=== PATIENT | female | born 1950 | race Caucasian/White ===

== ENCOUNTER → 2018-02-10 | Outpatient (REF) | payer OTHER, MEDICARE ==
[2018-02-10 13:48] LABS: APPEARANCE, URINE CLEAR (CLEAR); BACTERIA, URINE AUTO NEGATIVE (NEGATIVE); BILIRUBIN, URINE AUTO NEGATIVE (NEGATIVE); BLOOD, URINE BLOOD 2+ (NEGATIVE); COLOR, URINE STRAW (YELLOW); GLUCOSE, URINE (UA) AUTO NEGATIVE (NEGATIVE); KETONE, URINE AUTO NEGATIVE (NEGATIVE); LEUKOCYTE ESTERASE, URINE AUTO NEGATIVE (NEGATIVE); MUCUS, URINE SMALL (NEGATIVE); NITRITE, URINE AUTO NEGATIVE (NEGATIVE); PROTEIN, URINE AUTO NEGATIVE (NEGATIVE); RBC, URINE AUTO 2 /HPF (0-3); SPECIFIC GRAVITY URINE AUTO 1.006 (1.002-1.035); SQUAMOUS EPITHELIAL CELL UR AU 0 /HPF (0-6); UROBILINOGEN, URINE AUTO 0.2 mg/dL (0.0-2.0); WBC, URINE AUTO 0 /HPF (0-3)
== END ==
LOC: M SMT 13:17
DX: R32 Unspecified urinary incontinence (principal)

== ENCOUNTER → 2018-02-17 | Outpatient (REF) | payer OTHER, MEDICARE ==
[2018-02-17 14:07] LABS: APPEARANCE, URINE HAZY (CLEAR); BACTERIA, URINE AUTO NEGATIVE (NEGATIVE); BILIRUBIN, URINE AUTO NEGATIVE (NEGATIVE); BLOOD, URINE BLOOD 1+ (NEGATIVE); COLOR, URINE STRAW (YELLOW); GLUCOSE, URINE (UA) AUTO NEGATIVE (NEGATIVE); KETONE, URINE AUTO NEGATIVE (NEGATIVE); LEUKOCYTE ESTERASE, URINE AUTO NEGATIVE (NEGATIVE); MUCUS, URINE SMALL (NEGATIVE); NITRITE, URINE AUTO NEGATIVE (NEGATIVE); PROTEIN, URINE AUTO NEGATIVE (NEGATIVE); RBC, URINE AUTO 1 /HPF (0-3); SPECIFIC GRAVITY URINE AUTO 1.005 (1.002-1.035); SQUAMOUS EPITHELIAL CELL UR AU 2 /HPF (0-6); UROBILINOGEN, URINE AUTO 0.2 mg/dL (0.0-2.0); WBC, URINE AUTO 0 /HPF (0-3)
== END ==
LOC: M SMT 13:40
DX: R32 Unspecified urinary incontinence (principal)

== ENCOUNTER → 2018-04-27 | Outpatient (REF) | payer MEDICARE, MEDICAID ==
[~2018-04-27] MED LIST: ASPI81TA21 PO; FISH1000 PO; MULTCAP PO; MYRB50TA PO; OMEG1CAP16 PO; RANI1TAB6 PO
== END ==
LOC: M SFHCCLAY 19:22
PROVIDERS: ATTEND Family Medicine
DX: Z12.4 Encounter for screening for malignant neoplasm of cervix (principal); R87.5 Abnormal microbiological findings in specimens from female genital organs; R87.615 Unsatisfactory cytologic smear of cervix

== ENCOUNTER 2018-06-07 06:43 | Day surgery (SDC) | payer MEDICARE, MEDICAID ==
[~2018-06-07] VITALS: Ht 165.1 cm; Wt 87.7 kg
[2018-06-07] MEDS ORDERED: NS 1,000 ML IV ONE (07:30)
[2018-06-07] MEDS ORDERED: PROPOFOL 200 MG/20 ML VIAL As Ordered ONE ×2 (08:05→08:17)
--- NOTE | 2018-06-07 08:41 | ROOR ---
Patient Name: Nithya Holliday Procedure Date: 06/07/2018 8:03 AM Date of : 1950 Age: 67 Room: [facility] Gender: Female Note Status: Finalized Procedure: Colonoscopy Indications: Screening for colorectal malignant neoplasm Providers: Toni George MD Referring MD: Neela RASHID DO Requesting Provider: Medicines: Monitored Anesthesia Care Complications: No immediate complications. Procedure: Pre-Anesthesia Assessment: - Prior to the procedure, a History and Physical was performed, and patient medications and allergies were reviewed. The patient is competent. The risks and benefits of the procedure and the sedation options and risks were discussed with the patient. All questions were answered and informed consent was obtained. Patient identification and proposed procedure were verified by the physician, the nurse and the anesthesiologist in the procedure room. Mental Status Examination: alert and oriented. Airway Examination: normal oropharyngeal airway and neck mobility. Respiratory Examination: clear to auscultation. CV Examination: normal. Prophylactic Antibiotics: The patient does not require prophylactic antibiotics. Prior Anticoagulants: The patient has taken no previous anticoagulant or antiplatelet agents. ASA Grade Assessment: II - A patient with mild systemic disease. After reviewing the risks and benefits, the patient was deemed in satisfactory condition to undergo the procedure. The anesthesia plan was to use monitored anesthesia care (MAC). Immediately prior to administration of medications, the patient was re-assessed for adequacy to receive sedatives. The heart rate, respiratory rate, oxygen saturations, blood pressure, adequacy of pulmonary ventilation, and response to care were monitored throughout the procedure. The physical status of the patient was re-assessed after the procedure. The Colonoscope was introduced through the anus and advanced to the terminal ileum, with identification of the appendiceal orifice and IC valve. The colonoscopy was performed without difficulty. The patient tolerated the procedure well. The quality of the bowel preparation was good. The terminal ileum, ileocecal valve, appendiceal orifice, and rectum were photographed. Scope insertion time was 3 minutes. Scope withdrawal time was 9 minutes. The total duration of the procedure was 12 minutes. Findings: The perianal and digital rectal examinations were normal. The terminal ileum appeared normal. Two sessile polyps were found in the transverse colon. The polyps were 4 to 6 mm in size. These polyps were removed with a jumbo cold forceps. Resection and retrieval were complete. Verification of patient identification for the specimen was done by the physician and nurse using the patient's name, date and medical record number. Estimated blood loss was minimal. A few small-mouthed diverticula were found in the sigmoid colon. Non-bleeding external and internal hemorrhoids were found during retroflexion. The hemorrhoids were medium-sized. Impression: - The examined portion of the ileum was normal. - Two 4 to 6 mm polyps in the transverse colon, removed with a jumbo cold forceps. Resected and retrieved. - Diverticulosis in the sigmoid colon. - Non-bleeding external and internal hemorrhoids. Recommendation: - Patient has a contact number available for emergencies. The signs and symptoms of potential delayed complications were discussed with the patient. Return to normal activities tomorrow. Written discharge instructions were provided to the patient. - High fiber diet. - Continue present medications. - Await pathology results. - Repeat colonoscopy in 5 years for surveillance based on pathology results. - Based on the biopsy results you will receive a phone call from GI clinic in 2-3 weeks to review the pathology results AND/OR your results will be faxed to your Primary care physician. - Return to primary care physician. Toni George MD Toni George MD 06/07/2018 8:41:20 AM This report has been signed electronically. Number of Addenda: 0 Note Initiated On: 06/07/2018 8:03 AM Estimated Blood Loss: Estimated blood loss was minimal.
[2018-06-07 08:45] VITALS: BP 172/74
[2018-07-08] MEDS ORDERED: FLUO1CRE2 EX (11:25)
== END 2018-06-07 08:55 | disposition home or self-care (01) ==
LOC: M OPP 06:43
PROVIDERS: ATTEND Internal Medicine Gastroenterology
DX: K64.8 Other hemorrhoids (principal); D12.3 Benign neoplasm of transverse colon; K57.30 Diverticulosis of large intestine without perforation or abscess without bleeding; Z79.82 Long term (current) use of aspirin; Z79.899 Other long term (current) drug therapy; Z80.0 Family history of malignant neoplasm of digestive organs

== ENCOUNTER → 2018-06-23 | Outpatient (REF) | payer MEDICARE, MEDICAID ==
[~2018-06-23] MED LIST changes: +FLUO1CRE2 EX
== END ==
LOC: M SFHCPLAZ 17:14 → M SFHCLERA 17:14
PROVIDERS: ATTEND Dermatology
DX: L82.1 Other seborrheic keratosis (principal); C44.629 Squamous cell carcinoma of skin of left upper limb, including shoulder
CPT/HCPCS: 11102; 11103; 88305; G0463

== ENCOUNTER → 2018-08-04 | Outpatient (CLI) | payer MEDICARE, MEDICAID ==
--- NOTE | 2018-08-04 20:40 | REP ---
HISTORY: Acute back pain with right-sided lower extremity radicular symptoms. COMPARISON: None. There is loss of disc space height and disc hydrational signal from L2-3 through L5-S1 inclusive. Modic type 1 and 2 endplate changes are seen at L4-5. Vertebral body height and alignment is within normal limits. No abnormal signal is seen in the imaged portion of the spinal cord. At the L1-2 level there is no disc herniation, foraminal narrowing or central canal stenosis. Degenerative facet joint changes are present bilaterally. At the L2-3 level there is a broad-based annular bulge. Degenerative facet joint changes are present bilaterally with thickening of the ligamentum flava. These factors in concert are causing mild central canal stenosis. There is no evidence of foraminal stenosis or acute disc herniation. At the L3-4 level there is a right paracentral disc extrusion which is compressing the right foraminal nerve. The extruded disc material migrates inferiorly. There is also a broad-based annular bulge seen in conjunction with hypertrophic degenerative facet joint changes bilaterally and thickening of the ligamentum flava, but right greater than left. These factors add to the right-sided foraminal stenosis and contribute to moderate generalized central canal stenosis. At the L4-5 level there is a large broad-based annular bulge seen in conjunction with degenerative facet joint changes bilaterally and thickening of the ligamentum flava. These factors in concert are causing moderate to severe central canal stenosis and bilateral foraminal stenosis, moderate on the left, but moderate to severe on the right. There is no evidence of an acute disc extrusion. At the L5-S1 level there is a broad-based annular bulge seen in conjunction with hypertrophic degenerative facet joint changes bilaterally and thickening of the ligamentum flava. These factors in concert are causing moderate to severe central canal stenosis and moderate right with moderate to severe left foraminal stenosis. There is no evidence of an acute disc extrusion. IMPRESSION: 1. L3-4 disc extrusion as described above. 2. Chronic discogenic changes and chronic facet joint changes giving rise to multilevel foraminal narrowing and central canal stenosis as described above. Electronically Signed by Luciano Tsang DO 08/05/2018 01:56 P
== END ==
LOC: M RAD 18:16
PROVIDERS: ATTEND Family Medicine
DX: M51.36 Other intervertebral disc degeneration, lumbar region (principal); M54.41 Lumbago with sciatica, right side; R29.2 Abnormal reflex
CPT/HCPCS: 72148; 87804; 96372; G0463; J1885

== ENCOUNTER → 2019-02-10 | Outpatient (CLI) | payer MEDICARE, MEDICAID ==
[~2019-02-10] MED LIST changes: +RANI-397 PO; -RANI1TAB6 PO
--- NOTE | 2019-02-10 08:07 | REP ---
Clinical: Pain radiating to lower extremity. Technique: AP and lateral views of the lumbar spine. Comparison: None. Findings: Evidence for prior posterior fixation and laminectomy at L3 - S1. Alignment and disc spaces are relatively well maintained. Moderate degenerative change at L2-3 includes subchondral heterogeneity with a marginal spurring and mild disc space narrowing. There is no evidence for acute fracture / compression injury or subluxation. Impression: 1. Posterior fixation at L3 - S1 with satisfactory alignment and intervertebral disc height. 2. Moderate degenerative spondylosis at L2-3. Electronically Signed by Nic Higginbotham MD 02/10/2019 07:58 A
--- NOTE | 2019-02-10 09:17 | REP ---
MRI lumbar spine without contrast: History: Right-sided low back pain radiating down the right thigh. Status post lumbar spine surgery December 02, 2018. Comparison radiographs are from February 10, 2019. Comparison MRI study August 04, 2018. Technique: Sagittal and axial T1 and T2-weighted scans are acquired in the usual fashion with and without fat saturation. Sequences include spin echo, turbo spin-echo, and STIR imaging sequences. MRI findings: The patient is status post laminectomy and fusion L3-S1. There are transpedicle screws bilaterally at each of these levels with dorsally interconnecting rods in place. Magnetic field susceptibility artifact is seen fairly extensively throughout the fused segments. This does limit visualization. Vertebral body heights are preserved. Alignment is normal. The tip of the conus medullaris is normal in position and appearance at L1. Axial and sagittal images at the L1-2 intervertebral disc level show no abnormality. At L2-3, there is degenerative narrowing of the disc with decreased signal intensity. There is diffuse moderate disc bulging indenting the ventral margin of the thecal sac as before. Nerve roots are surrounded by epidural fat and uncompressed. Canal size is borderline. No new disc protrusion is seen. The thecal sac is largely obscured on the sagittal and axial images at the L3-4, and L4-5 disc levels. At L5-S1, there is no evidence of new disc protrusion. There is diffuse bulging of the posterior disc margin with osteophytic ridging. No definite foraminal stenosis is seen but the neural foramen are also obscured to some degree. Impression: Significant magnetic field susceptibility artifact obscures the thecal sac from L3 through S1 and diffuse lumbar levels. Canal size is borderline due to diffuse disc bulging at L2-3 unchanged. Electronically Signed by Michel Shipley MD 02/10/2019 09:43 A
== END ==
LOC: M RAD 07:36
PROVIDERS: ATTEND Physician Assistant Medical
DX: M79.604 Pain in right leg (principal); T78.40XA Allergy, unspecified, initial encounter; Z98.1 Arthrodesis status; M51.26 Other intervertebral disc displacement, lumbar region

== ENCOUNTER → 2019-02-28 | Outpatient (REF) | payer MEDICARE, MEDICAID ==
[~2019-02-28] MED LIST changes: +RANI-356 PO; -RANI-397 PO
== END ==
LOC: M SFHCPLAZ 10:10
PROVIDERS: ATTEND Dermatology
DX: L57.0 Actinic keratosis (principal); D23.5 Other benign neoplasm of skin of trunk

== ENCOUNTER → 2019-03-17 | Outpatient (REF) | payer MEDICARE, MEDICAID ==
[2019-03-17 12:56] LABS: ALBUMIN 3.7 GM/DL (3.2-5.2); ALT/SGPT 25 U/L (12-78); BILIRUBIN,TOTAL 0.5 MG/DL (0.2-1.0); BLOOD UREA NITROGEN 15 MG/DL (7-18); CALCIUM LEVEL 9.2 MG/DL (8.8-10.2); CARBON DIOXIDE LEVEL 27 MEQ/L (21-32); CHLORIDE LEVEL 107 MEQ/L (98-107); CHOLESTEROL LEVEL 227 MG/DL (<200); CHOLESTEROL RISK RATIO 3.197 (<5); CREATININE FOR GFR 0.86 MG/DL (0.55-1.30); GLOMERULAR FILTRATION RATE > 60.0 (>45); GLUCOSE, FASTING 88 MG/DL (70-100); HDL CHOLESTEROL 71 MG/DL (>40); LDL CHOLESTEROL 139 MG/DL (<100); NON-HDL-C 156 MG/DL; POTASSIUM SERUM 4.6 MEQ/L (3.5-5.1); SODIUM LEVEL 140 MEQ/L (136-145); TOTAL PROTEIN 6.5 GM/DL (6.4-8.2); TRIGLYCERIDES LEVEL 84 MG/DL (<150)
== END ==
LOC: M SFHCCLAY 08:58
PROVIDERS: ATTEND Family Medicine
DX: Z13.220 Encounter for screening for lipoid disorders (principal); Z13.1 Encounter for screening for diabetes mellitus; Z13.79 Encounter for other screening for genetic and chromosomal anomalies; Z80.3 Family history of malignant neoplasm of breast; Z80.0 Family history of malignant neoplasm of digestive organs
CPT/HCPCS: 80053; 80061; 90471; 90472; 90670; 90682; G0463

== ENCOUNTER → 2019-11-23 | Outpatient (REF) | payer MEDICARE, MEDICAID ==
[~2019-11-23] MED LIST changes: -RANI-356 PO; +RANI-397 PO
== END ==
LOC: M LAB REF 08:30
PROVIDERS: ATTEND Physician Assistant
DX: L57.0 Actinic keratosis (principal)

== ENCOUNTER → 2019-11-24 | Outpatient (REF) | payer MEDICARE, MEDICAID ==
[2019-11-24 17:37] LABS: APPEARANCE, URINE CLEAR (CLEAR); BACTERIA, URINE AUTO NEGATIVE (NEGATIVE); BILIRUBIN, URINE AUTO NEGATIVE (NEGATIVE); BLOOD, URINE BLOOD 1+ (NEGATIVE); COLOR, URINE YELLOW (YELLOW); GLUCOSE, URINE (UA) AUTO NEGATIVE (NEGATIVE); KETONE, URINE AUTO NEGATIVE (NEGATIVE); LEUKOCYTE ESTERASE, URINE AUTO NEGATIVE (NEGATIVE); NITRITE, URINE AUTO NEGATIVE (NEGATIVE); PROTEIN, URINE AUTO NEGATIVE (NEGATIVE); RBC, URINE AUTO 1 /HPF (0-3); SPECIFIC GRAVITY URINE AUTO 1.008 (1.002-1.035); SQUAMOUS EPITHELIAL CELL UR AU 0 /HPF (0-6); UROBILINOGEN, URINE AUTO 0.2 mg/dL (0.0-2.0); WBC, URINE AUTO 1 /HPF (0-3)
== END ==
LOC: M SMT 16:45
PROVIDERS: ATTEND Nurse Practitioner Family
DX: R30.0 Dysuria (principal)
CPT/HCPCS: 51798; 81001; 87086; G0463

== ENCOUNTER → 2020-07-17 | Outpatient (REF) | payer MEDICARE, MEDICAID ==
[~2020-07-17] MED LIST changes: +ECOT81TA5 PO; +ESTR0.1C5; +FISH10002 PO; +GABA800T4 PO; +MULT-90 PO; +TRAM50TA2 PO
== END ==
LOC: M SFHCWAGY 14:06
PROVIDERS: ATTEND Nurse Practitioner Women's Health
DX: Z12.4 Encounter for screening for malignant neoplasm of cervix (principal); R87.618 Other abnormal cytological findings on specimens from cervix uteri
CPT/HCPCS: 87624; G0101; G0123; G0463

== ENCOUNTER → 2020-09-13 | Outpatient (CLI) | payer MEDICARE, MEDICAID ==
--- NOTE | 2020-09-13 16:09 | REP ---
INDICATION: PAIN. COMPARISON: None. TECHNIQUE: Four views of the right shoulder are obtained. FINDINGS: The right glenohumeral and acromioclavicular joints are normally aligned. There is mild osteoarthritic hypertrophy of the AC joint. Periarticular soft tissues are unremarkable. There are surgical clips in the soft tissues of the neck on the right. IMPRESSION: AC joint osteoarthritis. Otherwise negative right shoulder radiographs. <Electronically signed by Feliberto Shipley > 09/13/20 [id number]
== END ==
LOC: M SOG 10:32
PROVIDERS: ATTEND Orthopaedic Surgery Sports Medicine
DX: M19.011 Primary osteoarthritis, right shoulder (principal); M75.41 Impingement syndrome of right shoulder

== ENCOUNTER → 2020-09-13 | Outpatient (REF) | payer MEDICARE, MEDICAID | LOC: M LAB REF 16:59 | PROVIDERS: ATTEND Physician Assistant | DX: L57.0 Actinic keratosis (principal) ==

== ENCOUNTER → 2020-10-10 | Outpatient (REF) | payer MEDICARE, MEDICAID ==
[2020-10-10 17:14] LABS: HEPATITIS A ANTIBODY IGM NEGATIVE (NEGATIVE); HEPATITIS B CORE ANTIBODY IGM NEGATIVE (NEGATIVE); HEPATITIS B SURFACE ANTIGEN NEGATIVE (NEGATIVE); HIV 1&2 SCREEN CENTAUR NEGATIVE (NEGATIVE)
== END ==
LOC: M SFHCCLAY 09:45
PROVIDERS: ATTEND Family Medicine
DX: Z11.3 Encounter for screening for infections with a predominantly sexual mode of transmission (principal); Z11.59 Encounter for screening for other viral diseases; Z11.4 Encounter for screening for human immunodeficiency virus [HIV]

== ENCOUNTER → 2020-10-13 | Outpatient (CLI) | payer MEDICARE, MEDICAID ==
--- NOTE | 2020-10-16 10:50 | REP ---
INDICATION: IMPINGEMENT SYNDROME RT SHOULDER, RCT INCOMPLETE. COMPARISON: None. TECHNIQUE: Coronal oblique T1, T2 fat sat, sagittal oblique T2 fat sat, axial T2 fat sat, gradient echo. Study is limited due to patient motion. FINDINGS: Rotator cuff: There is [id number] tendinopathy/tendinitis of the subscapularis, supraspinatus and infraspinatus tendons. There are partial full-thickness tears of the subscapularis and supraspinatus tendons. Acromioclavicular joint: There are moderate hypertrophic degenerative changes of the acromioclavicular joint. There is mild to moderate fluid in the joint. Acromion: Type 2 Biceps Tendon: There are findings compatible with high-grade partial tear of the proximal biceps tendon. There is moderate fluid surrounding the biceps tendon is within the bicipital groove. Hill Sach's deformity: None. Deltoid muscle: No abnormal signal. Labrum: The biceps labral complex appears torn, but otherwise no definite labral tear is seen. Cartilage: No defects. Bone marrow: There is mild subcortical marrow edema in the humeral head. Joint fluid: There is a moderate joint effusion extending into the subacromial/subdeltoid bursae. IMPRESSION: There is [id number] tendinopathy/tendinitis of the subscapularis, supraspinatus and infraspinatus tendons. There are partial full-thickness tears of the subscapularis and supraspinatus tendons. Moderate hypertrophic degenerative changes acromioclavicular joint with mild to moderate fluid in the joint. Findings suggestive of a high-grade partial tear of the proximal biceps tendon and biceps labral complex. Moderate joint effusion, with fluid extending into the subacromial/subdeltoid bursae. <Electronically signed by Vito Gaytan > 10/16/20 [id number]
== END ==
LOC: M RAD 09:13
PROVIDERS: ATTEND Orthopaedic Surgery Sports Medicine
DX: M75.41 Impingement syndrome of right shoulder (principal); M75.111 Incomplete rotator cuff tear or rupture of right shoulder, not specified as traumatic

== ENCOUNTER → 2020-11-09 | Outpatient (REF) | payer MEDICARE, MEDICAID | LOC: M SFHCCLAY 16:08 | PROVIDERS: ATTEND Physician Assistant | DX: R30.0 Dysuria (principal) ==

== ENCOUNTER → 2021-01-15 | Outpatient (REF) | payer MEDICARE, MEDICAID | LOC: M SFHCCLAY 18:35 | PROVIDERS: ATTEND Family Medicine | DX: R35.0 Frequency of micturition (principal) | CPT/HCPCS: 81002; 87088; 87186; 93005; G0463 ==

== ENCOUNTER → 2021-01-18 | Outpatient (CLI) | payer MEDICARE, MEDICAID | LOC: M LABSMTC 09:03 | PROVIDERS: ATTEND Anesthesiology | DX: Z01.818 Encounter for other preprocedural examination (principal); Z20.822 Contact with and (suspected) exposure to COVID-19 ==

== ENCOUNTER 2021-01-23 06:00 | Day surgery (SDC) | payer MEDICARE, MEDICAID ==
[~2021-01-23] VITALS: Ht 165.1 cm; Wt 94.3 kg
[~2021-01-23 06:00] MED LIST changes: +LIDOCAINE 1% MDV 20ML VIAL SQ PRN; +LR 1,000 ML IV ONE; +ceFAZolin SOD 2 GM in IV 1 EA IV ONE
[2021-01-23] MEDS ORDERED: MIDAZOLAM INJ 2MG/2ML VIAL (J2250 PER 1MG) IV PRN (07:01)
[2021-01-23] MEDS ORDERED: fentaNYL 100 MCG/2 ML INJECTION (J3010) IV PRN ×2 (07:01→10:55)
[2021-01-23] MEDS ORDERED: propofoL 200 MG/20 ML VIAL As Ordered ONE (07:09)
[2021-01-23] MEDS ORDERED: ROCURONIUM BROMIDE 50 MG/5 ML VIAL As Ordered ONE ×2 (07:09→10:07)
[2021-01-23] MEDS ORDERED: LIDOCAINE 2% 100MG/5ML SDV (FOR ANES.) As Ordered ONE (07:09)
[2021-01-23] MEDS ORDERED: EPINEPHrine 1MG/ML INJ 30ML MD-VIAL As Ordered ONE (07:10)
[2021-01-23] MEDS ORDERED: fentaNYL 250 MCG/5 ML INJECTION (J3010) As Ordered ONE (07:10)
[2021-01-23] MEDS ORDERED: MIDAZOLAM INJ 2MG/2ML VIAL (J2250 PER 1MG) As Ordered ONE (07:10)
[2021-01-23] MEDS ORDERED: ROPIvacaine 0.5% 30ML INJECTION (J2795 PER 1MG) XX ONE (07:20)
[2021-01-23] MEDS ORDERED: LIDOCAINE 1% MDV 20ML VIAL XX ONE (07:20)
[2021-01-23] MEDS ORDERED: EPINEPHrine INJ 1 MG/ML 1ML AMP XX ONE (07:20)
[2021-01-23] MEDS ORDERED: ePHEDrine SULFATE 25 MG/5 ML(5MG/ML) SYRINGE As Ordered ONE (08:26)
[2021-01-23] MEDS ORDERED: ACETAMINOPHEN 1000MG 100ML IV BTL (OFIRMEV) (J0131 PER 10MG) As Ordered ONE (08:56)
[2021-01-23] MEDS ORDERED: KETOROLAC 60MG 2ML VIAL As Ordered ONE (09:14)
[2021-01-23] MEDS ORDERED: ONDANSETRON 4MG/2ML VIAL As Ordered ONE (09:15)
[2021-01-23] MEDS ORDERED: SUGAMMADEX SODIUM 500 MG/5 ML VIAL (BRIDION) As Ordered ONE (09:15)
[2021-01-23] MEDS ORDERED: dexameTHASONE 4 MG/ML 1ML VIAL (J1100 PER 1MG) As Ordered ONE (09:15)
[2021-01-23] MEDS ORDERED: PERCOCET 5MG/325MG TAB PO PRN ×2 (10:55→11:00)
[2021-01-23] MEDS ORDERED: METOCLOPRAMIDE INJ 10MG/2ML VIAL (J2765 PER 1) IV PRN (10:55)
[2021-01-23] MEDS ORDERED: ACETAMINOPHEN TAB 650MG DOSE (2X325MG) PO PRN (10:55)
[2021-01-23] MEDS ORDERED: LR 1,000 ML IV SCH ×2 (10:55)
[2021-01-23] MEDS ORDERED: ONDANSETRON 4MG/2ML VIAL IV PRN ×2 (10:55→11:00)
--- NOTE | 2021-01-23 12:15 | ROOPDOC ---
[facility] Report Of Operation Report of Operation DATE OF PROCEDURE: 01/23/21 PREPROCEDURE DIAGNOSES: Right shoulder rotator cuff tear SLAP tear AC joint arthrosis and impingement. POSTPROCEDURE DIAGNOSES: Same PROCEDURE PERFORMED: right shoulder arthroscopy, subacromial decompression, rotator cuff repair, distal clavicle excision, subpectoral biceps tenodesis SURGEON: Dr. Luis Hawkins MD HAND II CUTTER: ANESTHESIA: General anesthesia Dr. Diego. ESTIMATED BLOOD LOSS: Approximately 50 mL. COMPLICATIONS: None. REMARKS: None. FINDINGS: Large rotator cuff tear 4 cm anterior to posterior 3 cm medial to lateral, longitudinal fraying and hypertrophy of the biceps, ACJ arthrosis, type II acromion SPECIMENS REMOVED: None PROCEDURE NOTE: This 70-year-old female had continued shoulder pain and failed nonsurgical management. Had signs on the MRI of rotator cuff tear AC joint arthrosis as well as SLAP tear. I saw the patient in preoperative holding. Reiterated the risks and benefits pros and cons. I marked the right upper extremity the patient had no further questions. DESCRIPTION OF PROCEDURE: The patient was brought to the operating theater. They are placed lateral decubitus with the aid of the beanbag positioner. General anesthesia was induced. 2 g of IV Ancef given prior to the start of the case. All bony prominences appropriately padded. Axillary roll was used. SCDs on the legs. Upper extremity prepped and draped in the usual sterile fashion with chlorhexidine-based prep solution allowing over 3 minutes drying time prior to draping. 10 pounds of traction with the arm in approximately 45 degrees of abduction was used. Preop timeout performed to confirm the site the patient and the surgery. I made standard posterior, lateral and anterior arthroscopy portals. I performed thorough diagnostic arthroscopy. Cartilage on the glenoid and humeral head appeared normal. There is a large full-thickness tear of the supraspinatus tendon obvious, tearing of the upper border subscapularis as well as hypertrophy longitudinal tearing and medial subluxation of the long head of the biceps. Infraspinatus and teres minor appeared intact. Rotator interval was entered and portal created using inside-out spinal needle localization. Rotator interval was gently debrided. Long head of the biceps was tenotomized using ablator instrument. I cleaned up the edges of the tear. I inserted the scope into the subacromial space. I performed a thorough bursectomy. There is moderate to advanced degrees of inflammatory bursitis especially posterior laterally. I cleared away any bursa from the undersurface the acromion and then performed a subacromial decompression to flat margins. I then identified the distal clavicle cleared away any interposed soft tissue and performed a distal clavicle excision for a length of approximately 6 mm to flat margins, placing the scope anteriorly into the ACJ. Then identified the tear. I cleared away any soft tissue from the greater tuberosity at the rotator cuff insertion. I used the Arthrex power pick instrument to trephinate at the rotator cuff insertion to create a bleeding bony bed for healing. I used a double row Arthrex anchors 4.75 mm swivel lock anchors. The first anchor the sutures got tangled had to be removed and I then moved the subsequent anchor anterior to this to achieve proper spacing as the original anchor did look a touch posterior. I placed my 2 anchors at the medial row at the articular cartilage margin. I passed 1 suture limb in the upper border of the "comma" tissue from the anterior anchor and then 1 suture limb posterior to this. This was in order to fix the upper border subscapularis tear and reproduce the rotator cable. I then passed the suture for the posterior cuff limb inferior to superior, cut at the splice for the posterior anchor suture, and used an additional lateral cannula to create a "box and X" configuration to the sutures inserting them into the knotless swivel lock anchors laterally. There was delamination to the tear as well as a medial to lateral split which I attempted to reduce using this technique. Rotator cuff tendon supraspinatus was nicely fixed and subscapularis well opposed. I then turned my attention to performing the proximal subpectoral biceps t enodesis. I made a small 2 inch longitudinal incision at the proximal anteromedial aspect of the humerus. Carried dissection down through skin and subcutaneous tissue. I developed the interval incising longitudinally through the fascia sweeping underneath the deltoid. Identified the long head of the biceps and delivered this through the incision. I used the Arthrex biceps butt on in a unicortical fashion. I did 5 throws of the suture loop with a Venancio needle and locked it distally. I then passed the sutures and opposite fashion through the button. Unicortical drill hole was drilled at the groove and then the button passed into the hole and flipped to deliver the tendon to the proximal humerus. I then passed 1 suture limb through the tendon again and affixed this in place with a knot over top of the tendon using interrupted half hitches and cut the suture short. This was thoroughly irrigated of any bone dust prior to affixing the tendon. All wounds were thoroughly irrigated. Subcutaneous tissue closed with interrupted 2-0 Vicryl sutures and skin with running 3-0 Monocryl. Skin was cleaned with wet and dry dressing followed application of Steri-Strips Adaptic 4 x 8's gauze abdominal pad dressings cloth tape and a sling. Patient was woken up from general anesthetic transferred off the operating room table and taken to postanesthetic care unit in stable condition. All sponge needle, counts were correct no complications estimated blood loss 50 cc plan to the patient discharged home according to day surgery criteria. Start immediate pendulum exercises as well as hand wrist and elbow exercises 4 times a day. Follow-up in the office in 2 weeks time. I spoke with the patient after surgery they had no further questions. Postoperative wound instructions were given. It was recommended to keep the wound clean and dry. Dressing changes as needed. It was reinforced with the patient that they should call us or be seen immediately for redness, drainage, or fever. Risk factors for harms from taking opioid medications discussed and assessed including but not limited to personal or family history of substance use disorder, anxiety or depression, , age 65 or older, COPD or other underlying respiratory conditions, and renal or hepatic insufficiency. Discussed with patient concerns and determined any harms they may experience or be currently experiencing such as nausea or constipation, feeling sedated or confused, breathing interruptions during sleep, or taking or craving more opioids than prescribed or difficulty controlling use (addiction). Discussed early warning signs of overdose including confusion, sedation, slurred speech, abnormal gait. LUIS HAWKINS MD Jan 23, 2021 12:15
[2021-01-23 13:30] VITALS: BP 145/76
== END 2021-01-23 13:30 | disposition home or self-care (01) ==
LOC: M SDC 06:00
PROVIDERS: ATTEND Orthopaedic Surgery Sports Medicine
DX: M75.101 Unspecified rotator cuff tear or rupture of right shoulder, not specified as traumatic (principal); S43.431A Superior glenoid labrum lesion of right shoulder, initial encounter; X58.XXXA Exposure to other specified factors, initial encounter; Y92.89 Other specified places as the place of occurrence of the external cause; M19.011 Primary osteoarthritis, right shoulder; M75.42 Impingement syndrome of left shoulder; C85.90 Non-Hodgkin lymphoma, unspecified, unspecified site; C95.90 Leukemia, unspecified not having achieved remission; K21.9 Gastro-esophageal reflux disease without esophagitis; M51.9 Unspecified thoracic, thoracolumbar and lumbosacral intervertebral disc disorder; Z88.8 Allergy status to other drugs, medicaments and biological substances; Z79.899 Other long term (current) drug therapy; Z79.82 Long term (current) use of aspirin; Z79.890 Hormone replacement therapy; Z79.891 Long term (current) use of opiate analgesic
CPT/HCPCS: 29824; 29826; 29827; 29828; C1713; J0131; J0171; J0690; J1100; J1885; J2250; J2405; J2765; J2795; J3010

== ENCOUNTER → 2021-05-31 | Outpatient (CLI) | payer MEDICARE, MEDICAID ==
[~2021-05-31] MED LIST changes: -LIDOCAINE 1% MDV 20ML VIAL SQ PRN; -LR 1,000 ML IV ONE; -ceFAZolin SOD 2 GM in IV 1 EA IV ONE
== END ==
LOC: M SOG 13:17
PROVIDERS: ATTEND Orthopaedic Surgery Hand Surgery
DX: M25.511 Pain in right shoulder (principal)

== ENCOUNTER → 2021-06-06 | Outpatient (REF) | payer MEDICARE, MEDICAID ==
[2021-06-06 16:30] LABS: ALBUMIN 3.9 GM/DL (3.2-5.2); ALT/SGPT 21 U/L (12-78); BILIRUBIN,TOTAL 0.4 MG/DL (0.2-1.0); BLOOD UREA NITROGEN 16 MG/DL (7-18); CALCIUM LEVEL 9.1 MG/DL (8.8-10.2); CARBON DIOXIDE LEVEL 30 MEQ/L (21-32); CHLORIDE LEVEL 106 MEQ/L (98-107); CHOLESTEROL LEVEL 201 MG/DL (<200); CHOLESTEROL RISK RATIO 2.421 (<5); GLOMERULAR FILTRATION RATE > 60.0 (>45); GLUCOSE, FASTING 91 MG/DL (70-100); HDL CHOLESTEROL 83 MG/DL (>40); LDL CHOLESTEROL 99 MG/DL (<100); NON-HDL-C 118 MG/DL; POTASSIUM SERUM 4.7 MEQ/L (3.5-5.1); SODIUM LEVEL 140 MEQ/L (136-145); TOTAL PROTEIN 6.7 GM/DL (6.4-8.2); TRIGLYCERIDES LEVEL 95 MG/DL (<150)
== END ==
LOC: M SFHCCLAY 12:01
PROVIDERS: ATTEND Family Medicine
DX: Z13.220 Encounter for screening for lipoid disorders (principal); Z79.899 Other long term (current) drug therapy

== ENCOUNTER → 2021-10-17 | Outpatient (CLI) | payer MEDICARE | LOC: M RAD 07:39 | PROVIDERS: ATTEND Orthopaedic Surgery Hand Surgery | DX: S46.011A Strain of muscle(s) and tendon(s) of the rotator cuff of right shoulder, initial encounter (principal); M25.511 Pain in right shoulder ==

== ENCOUNTER → 2021-10-30 | Outpatient (CLI) | payer MEDICARE | LOC: M SOG 13:00 | PROVIDERS: ATTEND Orthopaedic Surgery | DX: Z47.89 Encounter for other orthopedic aftercare (principal) ==

== ENCOUNTER → 2021-11-25 | Outpatient (CLI) | payer MEDICARE | LOC: M LABSMTC 09:22 | PROVIDERS: ATTEND Anesthesiology | DX: Z11.52 Encounter for screening for COVID-19 (principal); Z20.822 Contact with and (suspected) exposure to COVID-19 ==

== ENCOUNTER → 2022-02-20 | Outpatient (REF) | payer MEDICARE, MEDICAID ==
[2022-02-20 17:42] LABS: HEMATOCRIT 40.4 % (36.0-47.0); HEMOGLOBIN 12.8 g/dl (12.0-15.5); MEAN CORPUSCULAR HEMOGLOBIN 29.8 pg (27.0-33.0); MEAN CORPUSCULAR HGB CONC 31.7 g/dl (32.0-36.5); PLATELET COUNT, AUTOMATED 254 10^3/uL (150-450); WHITE BLOOD COUNT 24.8 10^3/uL (4.0-10.0)
[2022-02-20 18:17] LABS: ALBUMIN 3.6 GM/DL (3.2-5.2); ALT/SGPT 23 U/L (12-78); BILIRUBIN,TOTAL 0.3 MG/DL (0.2-1.0); BLOOD UREA NITROGEN 9 MG/DL (7-18); CALCIUM LEVEL 8.7 MG/DL (8.8-10.2); CARBON DIOXIDE LEVEL 30 MEQ/L (21-32); CHLORIDE LEVEL 106 MEQ/L (98-107); CHOLESTEROL LEVEL 200 MG/DL (<200); CHOLESTEROL RISK RATIO 2.941 (<5); CREATININE FOR GFR 0.89 MG/DL (0.55-1.30); GLOMERULAR FILTRATION RATE > 60.0 (>45); GLUCOSE, FASTING 94 MG/DL (70-100); HDL CHOLESTEROL 68 MG/DL (>40); LDL CHOLESTEROL 107 MG/DL (<100); NON-HDL-C 132 MG/DL; POTASSIUM SERUM 4.9 MEQ/L (3.5-5.1); SODIUM LEVEL 138 MEQ/L (136-145); TOTAL PROTEIN 6.5 GM/DL (6.4-8.2); TRIGLYCERIDES LEVEL 127 MG/DL (<150)
== END ==
LOC: M SFHCCLAY 11:36
PROVIDERS: ATTEND Nurse Practitioner Family
DX: R07.9 Chest pain, unspecified (principal)

== ENCOUNTER → 2022-03-06 | Outpatient (REF) | payer MEDICARE, MEDICAID ==
[2022-03-06 17:37] LABS: HEMATOCRIT 40.2 % (36.0-47.0); HEMOGLOBIN 13.1 g/dl (12.0-15.5); MEAN CORPUSCULAR HEMOGLOBIN 30.4 pg (27.0-33.0); MEAN CORPUSCULAR HGB CONC 32.6 g/dl (32.0-36.5); MEAN CORPUSCULAR VOLUME 93.3 fl (80.0-96.0); PLATELET COUNT, AUTOMATED 285 10^3/uL (150-450); RED BLOOD COUNT 4.31 10^6/uL (4.00-5.40); WHITE BLOOD COUNT 20.7 10^3/uL (4.0-10.0)
[2022-03-06 18:09] LABS: EOSINOPHILS 1 % (0-3); LYMPHOCYTES 69 % (16-44); MONOCYTES 3 % (0-5); NEUTROPHILS 27 % (28-66); PLATELET ESTIMATE NORMAL (NORMAL); SMUDGE CELLS 2+
== END ==
LOC: M SFHCCLAY 11:25
PROVIDERS: ATTEND Nurse Practitioner Family
DX: C91.90 Lymphoid leukemia, unspecified not having achieved remission (principal)

== ENCOUNTER → 2022-03-13 | Outpatient (CLI) | payer MEDICARE, MEDICAID | LOC: M SOG 13:26 | PROVIDERS: ATTEND Orthopaedic Surgery Hand Surgery | DX: M79.642 Pain in left hand (principal) ==

== ENCOUNTER → 2022-04-28 | Outpatient (CLI) | payer MEDICARE, MEDICAID | LOC: M RAD 08:12 | PROVIDERS: ATTEND Physician Assistant Medical | DX: R20.0 Anesthesia of skin (principal); R26.9 Unspecified abnormalities of gait and mobility; W19.XXXA Unspecified fall, initial encounter; Z98.1 Arthrodesis status ==

== ENCOUNTER → 2022-06-16 | Outpatient (CLI) | payer MEDICARE, MEDICAID ==
[~2022-06-16] MED LIST changes: +FAMO20TA5 PO
== END ==
LOC: M LABSMTC 09:14
PROVIDERS: ATTEND Anesthesiology
DX: Z01.812 Encounter for preprocedural laboratory examination (principal); Z11.52 Encounter for screening for COVID-19

== ENCOUNTER 2022-06-18 07:41 | Observation (INO) | payer MEDICARE, MEDICAID ==
[~2022-06-18] VITALS: Ht 165.1 cm; Wt 90.7 kg
[~2022-06-18 07:41] MED LIST changes: +ACETAMINOPHEN 1000MG 100ML IV BAG As Ordered ONE; +KETOROLAC 60MG 2ML VIAL As Ordered ONE; +LIDOCAINE 2% 100MG/5ML SDV (FOR ANES.) As Ordered ONE; +ONDANSETRON 4MG 2ML VIAL As Ordered ONE; +fentaNYL 100 MCG/2 ML INJECTION As Ordered ONE; +propofoL 200 MG/20 ML VIAL As Ordered ONE
[2022-06-18] MEDS ORDERED: LIDOCAINE 1% SDV 5ML VIAL PN ONE (09:00)
[2022-06-18] MEDS ORDERED: ROPIvacaine 0.5% 30ML VIAL PN ONE (09:00)
[2022-06-18] MEDS ORDERED: ROCURONIUM BROMIDE 50MG/5ML VIAL As Ordered ONE ×2 (09:44→11:58)
[2022-06-18] MEDS ORDERED: SUGAMMADEX SODIUM 500 MG/5 ML VIAL (BRIDION) As Ordered ONE (09:44)
[2022-06-18] MEDS: fentaNYL 100 MCG/2 ML INJECTION IV PRN ×4 (10:07→14:16)
[2022-06-18] MEDS: MIDAZOLAM INJ 2MG/2ML VIAL IV PRN ×2 (10:08→10:10)
[2022-06-18] MEDS ORDERED: MIDAZOLAM INJ 2MG/2ML VIAL As Ordered ONE (10:16)
[2022-06-18] MEDS ORDERED: MIDAZOLAM INJ 2MG/2ML VIAL IV STA (10:16)
[2022-06-18] MEDS ORDERED: ceFAZolin SOD 2 GM in IV 1 EA IV ONE (10:45)
[2022-06-18] MEDS ORDERED: ceFAZolin 2 GM/D5W 50 ML IV BAG As Ordered ONE (10:49)
[2022-06-18] MEDS ORDERED: LIDOCAINE W/EPINEPHRINE 1% 20ML VIAL As Ordered ONE (11:33)
[2022-06-18] MEDS ORDERED: PHENYLephrine 500MCG 5ML (100MCG/ML) SYRINGE As Ordered ONE ×2 (11:38→12:48)
[2022-06-18] MEDS ORDERED: VANCOMYCIN 1000MG/20ML VIAL As Ordered ONE (12:52)
[2022-06-18] MEDS ORDERED: LR 1,000 ML IV SCH (13:30)
[2022-06-18] MEDS ORDERED: oxyCODONE 5MG TAB PO PRN ×2 (13:30→13:40)
[2022-06-18] MEDS ORDERED: ONDANSETRON 4MG 2ML VIAL IV PRN (13:30)
[2022-06-18] MEDS ORDERED: LIDOCAINE 2% 100MG/5ML SDV (FOR ANES.) As Ordered ONE (13:39)
[2022-06-18] MEDS ORDERED: IBUPROFEN 600MG TAB PO PRN (13:40)
[2022-06-18] MEDS ORDERED: ACETAMINOPHEN TAB 650MG DOSE (2X325MG) PO PRN (13:40)
[2022-06-18 15:45] VITALS: BP 154/80
[2022-06-18 16:15] VITALS: BP 147/80
[2022-06-18] MEDS: GABAPENTIN 400MG CAP PO SCH ×2 (17:14→20:25)
[2022-06-18 17:15] VITALS: BP 140/80
[2022-06-18 18:15] VITALS: BP 138/86
[2022-06-18] MEDS: ceFAZolin SOD 1 GM in D5W MINI-BAG PLUS 50 ML IV SCH (18:45)
[2022-06-18] MEDS: KETOROLAC 30 MG/ML 1ML VIAL IV SCH (18:46)
[2022-06-18 20:20] VITALS: BP 146/80
[2022-06-18] MEDS: FAMOTIDINE 20 MG TAB PO SCH (20:24)
[2022-06-18 22:06] VITALS: BP 117/67
[2022-06-19] MEDS: KETOROLAC 30 MG/ML 1ML VIAL IV SCH ×3 (00:33→07:00)
[2022-06-19 02:38] VITALS: BP 120/67
[2022-06-19] MEDS: ceFAZolin SOD 1 GM in D5W MINI-BAG PLUS 50 ML IV SCH ×2 (03:00→08:58)
[2022-06-19] MEDS ORDERED: ceFAZolin 1GM VIAL As Ordered ONE (03:59)
[2022-06-19 06:02] VITALS: BP 132/70
[2022-06-19 06:39] LABS: HEMOGLOBIN 12.1 g/dl (12.0-15.5); MEAN CORPUSCULAR HGB CONC 33.6 g/dl (32.0-36.5); MEAN CORPUSCULAR VOLUME 89.3 fl (80.0-96.0); PLATELET COUNT, AUTOMATED 231 10^3/uL (150-450); RED BLOOD COUNT 4.03 10^6/uL (4.00-5.40); WHITE BLOOD COUNT 29.5 10^3/uL (4.0-10.0)
[2022-06-19] MEDS ORDERED: KETOROLAC 30 MG/ML 1ML VIAL As Ordered ONE (06:45)
[2022-06-19] MEDS ORDERED: oxyCODONE 5MG TAB As Ordered ONE (06:51)
[2022-06-19 07:05] LABS: BLOOD UREA NITROGEN 18 MG/DL (9-23); CALCIUM LEVEL 8.4 MG/DL (8.3-10.6); CARBON DIOXIDE LEVEL 23 MMOL/L (20-31); CHLORIDE LEVEL 107 MMOL/L (98-107); CREATININE FOR GFR 0.84 MG/DL (0.55-1.30); GLOMERULAR FILTRATION RATE > 60.0 (>45); GLUCOSE, FASTING 114 MG/DL (74-106); POTASSIUM SERUM 4.2 MMOL/L (3.5-5.1); SODIUM LEVEL 137 MMOL/L (136-145)
[2022-06-19 08:19] LABS: ATYPICAL LYMPH 6 % (0-5); LYMPHOCYTES 43 % (16-44); MONOCYTES 7 % (0-5); NEUTROPHILS 43 % (28-66)
[2022-06-19 08:21] LABS: ANISOCYTOSIS 1+; SMUDGE CELLS 3+
[2022-06-19 08:22] LABS: PLATELET ESTIMATE NORMAL (NORMAL)
[2022-06-19] MEDS: GABAPENTIN 400MG CAP PO SCH (08:58)
[2022-06-19] MEDS: FAMOTIDINE 20 MG TAB PO SCH (08:58)
[2022-06-19] MEDS ORDERED: CEPHALEXIN 500 MG CAP PO ONE (09:00)
[2022-06-19] MEDS ORDERED: MIRALAX *UNIT DOSE* 17GM PACKET PO SCH (09:00)
[2022-06-19] MEDS ORDERED: MIRA1POW3 PO (11:44)
[2022-06-19] MEDS ORDERED: OXYC1TAB23 PO (11:44)
[2022-06-19] MEDS ORDERED: ENOXAPARIN 40MG/0.4ML SYRINGE (J1650 PER 10MG) SC SCH (14:00)
[2022-06-19] MEDS ORDERED: IBUPROFEN 600MG TAB PO PRN (19:00)
== END 2022-06-19 12:26 | disposition home or self-care (01) ==
LOC: M SDC 07:41 → M MS5PR 07:42
PROVIDERS: ADMIT Internal Medicine; ATTEND Internal Medicine
DX: M19.011 Primary osteoarthritis, right shoulder (principal); D72.829 Elevated white blood cell count, unspecified; C91.10 Chronic lymphocytic leukemia of B-cell type not having achieved remission; F41.9 Anxiety disorder, unspecified; K21.9 Gastro-esophageal reflux disease without esophagitis; Z98.1 Arthrodesis status; M51.16 Intervertebral disc disorders with radiculopathy, lumbar region; Z79.899 Other long term (current) drug therapy; Z88.5 Allergy status to narcotic agent; Z88.8 Allergy status to other drugs, medicaments and biological substances
CPT/HCPCS: 23472; 64415; 73020; 80048; 85007; 85027; 88304; 88311; 96374; 96375; 96376; 97110; 97161; 97165; C1713; C1773; C1776; G0378; J0690; J1100; J2250; J2370; J2405; J3010

== ENCOUNTER → 2022-07-18 | Outpatient (CLI) | payer MEDICARE, MEDICAID ==
[~2022-07-18] MED LIST changes: -ACETAMINOPHEN 1000MG 100ML IV BAG As Ordered ONE; -KETOROLAC 60MG 2ML VIAL As Ordered ONE; -LIDOCAINE 2% 100MG/5ML SDV (FOR ANES.) As Ordered ONE; +MIRA1POW3 PO; -ONDANSETRON 4MG 2ML VIAL As Ordered ONE; +OXYC1TAB23 PO; -fentaNYL 100 MCG/2 ML INJECTION As Ordered ONE; -propofoL 200 MG/20 ML VIAL As Ordered ONE
== END ==
LOC: M SOG 10:33
PROVIDERS: ATTEND Physician Assistant
DX: Z47.89 Encounter for other orthopedic aftercare (principal); Z96.611 Presence of right artificial shoulder joint

== ENCOUNTER → 2022-12-29 | Outpatient (REF) | payer MEDICARE, MEDICAID | LOC: M SFHCDERM 13:56 | PROVIDERS: ATTEND Physician Assistant | DX: C44.42 Squamous cell carcinoma of skin of scalp and neck (principal) ==

== ENCOUNTER → 2023-03-26 | Outpatient (REF) | payer MEDICARE | LOC: M SFHCDERM 17:38 | PROVIDERS: ATTEND Dermatology | DX: Z51.89 Encounter for other specified aftercare (principal) ==

== ENCOUNTER → 2023-04-02 | Outpatient (REF) | payer MEDICARE | LOC: M SFHCDERM 13:45 | PROVIDERS: ATTEND Dermatology | DX: Z51.89 Encounter for other specified aftercare (principal) ==

== ENCOUNTER → 2023-07-13 | Outpatient (REF) | payer OTHER ==
[~2023-07-13] MED LIST changes: -MIRA1POW3 PO; +MIRA33506 PO; +TRAM50TA2
[2023-07-13 18:36] LABS: FREE T4 1.08 NG/DL (0.89-1.76)
[2023-07-13 18:39] LABS: THYROID STIMULATING HORMONE 1.015 uIU/ML (0.55-4.78)
[2023-07-13 18:40] LABS: ALBUMIN 3.7 G/DL (3.2-5.2); ALKALINE PHOSPHATASE 104 U/L (46-116); ALT/SGPT 14 U/L (7.0-40); AST/SGOT 15 U/L (<34); BILIRUBIN,TOTAL 0.4 MG/DL (0.3-1.2); BLOOD UREA NITROGEN 14 MG/DL (9-23); CALCIUM LEVEL 8.7 MG/DL (8.3-10.6); CARBON DIOXIDE LEVEL 28 MMOL/L (20-31); CHLORIDE LEVEL 108 MMOL/L (98-107); CHOLESTEROL LEVEL 209 MG/DL (<200); CHOLESTEROL RISK RATIO 3.87 (<5); CREATININE FOR GFR 0.83 MG/DL (0.55-1.30); GLOMERULAR FILTRATION RATE > 60.0 (>39); GLUCOSE, FASTING 86 MG/DL (74-106); HDL CHOLESTEROL 53.9 MG/DL (>40); LDL CHOLESTEROL 134.7 MG/DL (<100); NON-HDL-C 155.1 MG/DL; POTASSIUM SERUM 4.2 MMOL/L (3.5-5.1); SODIUM LEVEL 140 MMOL/L (136-145); TOTAL PROTEIN 6.4 G/DL (5.7-8.2); TRIGLYCERIDES LEVEL 102 MG/DL (<150)
[2023-07-13 19:14] LABS: HEMOGLOBIN A1c 5.3 % (4.0-6.0)
== END ==
LOC: M SFHCCLAY 11:37
PROVIDERS: ATTEND Nurse Practitioner Family
DX: Z00.00 Encounter for general adult medical examination without abnormal findings (principal); R07.9 Chest pain, unspecified; C91.90 Lymphoid leukemia, unspecified not having achieved remission; K21.9 Gastro-esophageal reflux disease without esophagitis

== ENCOUNTER → 2023-08-11 | Outpatient (REF) | payer OTHER ==
[2023-08-11 18:53] LABS: HEMATOCRIT 43.8 % (36.0-47.0); HEMOGLOBIN 14.1 g/dl (12.0-15.5); MEAN CORPUSCULAR HEMOGLOBIN 29.1 pg (27.0-33.0); MEAN CORPUSCULAR HGB CONC 32.2 g/dl (32.0-36.5); MEAN CORPUSCULAR VOLUME 90.3 fl (80.0-96.0); PLATELET COUNT, AUTOMATED 249 10^3/uL (150-450); RED BLOOD COUNT 4.85 10^6/uL (4.00-5.40); WHITE BLOOD COUNT 18.8 10^3/uL (4.0-10.0)
[2023-08-11 19:25] LABS: PERCENT SATURATION 12.2 % (13.2-45.0)
[2023-08-11 19:27] LABS: FERRITIN 19.6 NG/ML (7.3-270.7)
[2023-08-11 20:44] LABS: ATYPICAL LYMPH 6 % (0-5); BASOPHILS 1 % (0-1); EOSINOPHILS 3 % (0-3); LYMPHOCYTES 66 % (16-44); NEUTROPHILS 24 % (28-66)
[2023-08-11 20:45] LABS: PLATELET ESTIMATE NORMAL (NORMAL); SMUDGE CELLS 1+
== END ==
LOC: M SFHCCLAY 11:19
PROVIDERS: ATTEND Nurse Practitioner Family
DX: R07.9 Chest pain, unspecified (principal); R06.02 Shortness of breath; Z79.899 Other long term (current) drug therapy; Z88.8 Allergy status to other drugs, medicaments and biological substances; Z85.828 Personal history of other malignant neoplasm of skin; Z80.9 Family history of malignant neoplasm, unspecified; Z86.39 Personal history of other endocrine, nutritional and metabolic disease

== ENCOUNTER → 2023-08-11 | Outpatient (CLI) | payer OTHER | LOC: M CLY 11:38 | PROVIDERS: ATTEND Nurse Practitioner Family | DX: M25.551 Pain in right hip (principal); M25.552 Pain in left hip ==

== ENCOUNTER → 2023-08-12 | Outpatient (CLI) | payer OTHER | LOC: M CARPUL 14:26 | PROVIDERS: ATTEND Nurse Practitioner Family | DX: R07.9 Chest pain, unspecified (principal); R06.02 Shortness of breath ==

== ENCOUNTER → 2023-10-29 | Outpatient (REF) | payer OTHER ==
[2023-10-29 19:39] LABS: BLOOD UREA NITROGEN 10 MG/DL (9-23); CREATININE FOR GFR 0.96 MG/DL (0.55-1.30); GLOMERULAR FILTRATION RATE > 60.0 (>39)
== END ==
LOC: M LRY 17:15
PROVIDERS: ATTEND Physician Assistant Medical
DX: R10.30 Lower abdominal pain, unspecified (principal)

== ENCOUNTER → 2023-11-02 | Outpatient (CLI) | payer OTHER, MEDICAID ==
[~2023-11-02] MED LIST changes: +GLUCAGON INJ 1MG VIAL As Ordered ONE; +ISOVUE-370 76% 100ML VIAL As Ordered ONE; +NEULUMEX 0.1% SUSPENSION 450ML BOTTLE (FORMERLY VOLUMEN) As Ordered ONE
== END ==
LOC: M RAD 13:47
PROVIDERS: ATTEND Physician Assistant Medical
DX: K76.89 Other specified diseases of liver (principal); R10.30 Lower abdominal pain, unspecified
CPT/HCPCS: 74177; J1610; Q9967

== ENCOUNTER → 2023-11-24 | Outpatient (REF) | payer OTHER, MEDICAID ==
[~2023-11-24] MED LIST changes: -GLUCAGON INJ 1MG VIAL As Ordered ONE; -ISOVUE-370 76% 100ML VIAL As Ordered ONE; -NEULUMEX 0.1% SUSPENSION 450ML BOTTLE (FORMERLY VOLUMEN) As Ordered ONE
== END ==
LOC: M SFHCDERM 17:37
PROVIDERS: ATTEND Physician Assistant
DX: C44.529 Squamous cell carcinoma of skin of other part of trunk (principal)

== ENCOUNTER 2023-12-24 09:22 | Day surgery (SDC) | payer OTHER ==
[~2023-12-24] VITALS: Ht 165.1 cm; Wt 90.7 kg
[~2023-12-24 09:22] MED LIST changes: +FAMO40TA3 PO; -TRAM50TA2; +VENTAER INH
[2023-12-24] MEDS: NS 1,000 ML IV ONE (10:20)
[2023-12-24] MEDS ORDERED: fentaNYL 100 MCG/2 ML INJECTION As Ordered ONE (11:01)
[2023-12-24] MEDS ORDERED: GLYCOPYRROLATE INJ 0.2 MG/ML 2 ML VIAL As Ordered ONE (11:36)
[2023-12-24] MEDS ORDERED: LIDOCAINE 2% 100MG/5ML SDV (FOR ANES.) As Ordered ONE (11:36)
[2023-12-24] MEDS ORDERED: propofoL 200 MG/20 ML VIAL As Ordered ONE (11:36)
[2023-12-24 11:50] VITALS: TEMP 97.2
[2023-12-24 12:09] VITALS: BP 143/65; O2SAT 98
== END 2023-12-24 12:10 | disposition home or self-care (01) ==
LOC: M OPP 09:22
PROVIDERS: ATTEND Internal Medicine Gastroenterology
DX: Z86.010 Personal history of colon polyps (principal); Z80.0 Family history of malignant neoplasm of digestive organs; D12.4 Benign neoplasm of descending colon; K64.8 Other hemorrhoids; K57.30 Diverticulosis of large intestine without perforation or abscess without bleeding; R11.0 Nausea; R12 Heartburn; I71.40 Abdominal aortic aneurysm, without rupture, unspecified; J43.9 Emphysema, unspecified; Z79.891 Long term (current) use of opiate analgesic; Z79.1 Long term (current) use of non-steroidal anti-inflammatories (NSAID); Z79.51 Long term (current) use of inhaled steroids; Z88.5 Allergy status to narcotic agent; Z88.8 Allergy status to other drugs, medicaments and biological substances
CPT/HCPCS: 43235; 45385; 88305; J1596

== ENCOUNTER → 2024-03-15 | Outpatient (REF) | payer OTHER, MEDICAID ==
[~2024-03-15] MED LIST changes: +GABA-1635 PO; -GABA800T4 PO
[2024-03-15 19:14] LABS: APPEARANCE, URINE CLEAR (CLEAR); BACTERIA, URINE AUTO NEGATIVE (NEGATIVE); BILIRUBIN, URINE AUTO NEGATIVE (NEGATIVE); BLOOD, URINE BLOOD 1+ (NEGATIVE); COLOR, URINE STRAW (YELLOW); GLUCOSE, URINE (UA) AUTO NEGATIVE (NEGATIVE); KETONE, URINE AUTO NEGATIVE (NEGATIVE); LEUKOCYTE ESTERASE, URINE AUTO NEGATIVE (NEGATIVE); NITRITE, URINE AUTO NEGATIVE (NEGATIVE); PROTEIN, URINE AUTO NEGATIVE (NEGATIVE); RBC, URINE AUTO 2 /HPF (0-3); SPECIFIC GRAVITY URINE AUTO 1.005 (1.002-1.035); SQUAMOUS EPITHELIAL CELL UR AU 1 /HPF (0-6); UROBILINOGEN, URINE AUTO 0.2 mg/dL (0.0-2.0); WBC, URINE AUTO 1 /HPF (0-3)
== END ==
LOC: M SMT 17:46
PROVIDERS: ATTEND Urology
DX: R33.9 Retention of urine, unspecified (principal)

== ENCOUNTER → 2024-04-05 | Outpatient (REF) | payer OTHER, MEDICAID | LOC: M SFHCDERM 17:54 | PROVIDERS: ATTEND Physician Assistant | DX: L57.8 Other skin changes due to chronic exposure to nonionizing radiation (principal); L90.5 Scar conditions and fibrosis of skin ==

== ENCOUNTER → 2024-04-06 | Outpatient (REF) | payer OTHER, MEDICAID ==
[2024-04-06 17:03] LABS: BASO # 0.1 10^3/uL (0.0-0.2); BASO % 0.6 % (0.0-1.0); EOS # 0.2 10^3/uL (0.0-0.5); HEMATOCRIT 37.6 % (36.0-47.0); HEMOGLOBIN 12.6 g/dl (12.0-15.5); LYMPH # 14.2 10^3/uL (1.5-5.0); LYMPH % 76.4 % (24.0-44.0); MEAN CORPUSCULAR HEMOGLOBIN 30.2 pg (27.0-33.0); MEAN CORPUSCULAR HGB CONC 33.5 g/dl (32.0-36.5); MEAN CORPUSCULAR VOLUME 90.2 fl (80.0-96.0); MONO # 0.7 10^3/uL (0.0-0.8); MONO % 3.9 % (2.0-8.0); NEUTROPHILS # 3.3 10^3/uL (1.5-8.5); NEUTROPHILS % 17.9 % (36.0-66.0); PLATELET COUNT, AUTOMATED 210 10^3/uL (150-450); RED BLOOD COUNT 4.17 10^6/uL (4.00-5.40); WHITE BLOOD COUNT 18.6 10^3/uL (4.0-10.0)
[2024-04-06 17:29] LABS: HEMOGLOBIN A1c 5.4 % (4.0-6.0)
[2024-04-06 17:33] LABS: ALBUMIN 3.7 G/DL (3.2-5.2); ALKALINE PHOSPHATASE 98 U/L (35-104); ALT/SGPT 15 U/L (7.0-40); AST/SGOT 13 U/L (<34); BILIRUBIN,TOTAL 0.5 MG/DL (0.3-1.2); BLOOD UREA NITROGEN 15 MG/DL (9-23); CALCIUM LEVEL 9.3 MG/DL (8.3-10.6); CARBON DIOXIDE LEVEL 26 MMOL/L (20-31); CHLORIDE LEVEL 108 MMOL/L (98-107); CHOLESTEROL LEVEL 231 MG/DL (<200); CHOLESTEROL RISK RATIO 3.29 (<5); GLOMERULAR FILTRATION RATE > 60.0 (>39); GLUCOSE, FASTING 77 MG/DL (74-106); HDL CHOLESTEROL 70.2 MG/DL (>40); NON-HDL-C 160.8 MG/DL; POTASSIUM SERUM 4.5 MMOL/L (3.5-5.1); SODIUM LEVEL 140 MMOL/L (136-145); TOTAL PROTEIN 6.7 G/DL (5.7-8.2); TRIGLYCERIDES LEVEL 89 MG/DL (<150)
[2024-04-06 17:35] LABS: FREE T4 1.08 NG/DL (0.89-1.76); THYROID STIMULATING HORMONE 0.991 uIU/ML (0.55-4.78)
== END ==
LOC: M SFHCCLAY 11:03
PROVIDERS: ATTEND Nurse Practitioner Family
DX: R92.8 Other abnormal and inconclusive findings on diagnostic imaging of breast (principal); Z85.828 Personal history of other malignant neoplasm of skin; R06.02 Shortness of breath; K21.9 Gastro-esophageal reflux disease without esophagitis; M51.16 Intervertebral disc disorders with radiculopathy, lumbar region; C91.90 Lymphoid leukemia, unspecified not having achieved remission; I77.819 Aortic ectasia, unspecified site; R07.9 Chest pain, unspecified; Z79.899 Other long term (current) drug therapy

== ENCOUNTER → 2024-04-29 | Outpatient (REF) | payer OTHER, MEDICAID ==
[2024-04-29 19:26] LABS: APPEARANCE, URINE CLEAR (CLEAR); BACTERIA, URINE AUTO NEGATIVE (NEGATIVE); BILIRUBIN, URINE AUTO NEGATIVE (NEGATIVE); BLOOD, URINE BLOOD 1+ (NEGATIVE); COLOR, URINE STRAW (YELLOW); GLUCOSE, URINE (UA) AUTO NEGATIVE (NEGATIVE); KETONE, URINE AUTO NEGATIVE (NEGATIVE); LEUKOCYTE ESTERASE, URINE AUTO NEGATIVE (NEGATIVE); MUCUS, URINE SMALL (NEGATIVE); NITRITE, URINE AUTO NEGATIVE (NEGATIVE); PROTEIN, URINE AUTO NEGATIVE (NEGATIVE); RBC, URINE AUTO 0 /HPF (0-3); SPECIFIC GRAVITY URINE AUTO 1.005 (1.002-1.035); SQUAMOUS EPITHELIAL CELL UR AU 0 /HPF (0-6); UROBILINOGEN, URINE AUTO 0.2 mg/dL (0.0-2.0); WBC, URINE AUTO 1 /HPF (0-3)
== END ==
LOC: M SMT 17:05
PROVIDERS: ATTEND Urology
DX: R39.198 Other difficulties with micturition (principal)

== ENCOUNTER → 2024-06-09 | Outpatient (CLI) | payer OTHER, MEDICAID | LOC: M SOG 08:00 | PROVIDERS: ATTEND Physician Assistant | DX: M79.645 Pain in left finger(s) (principal); M18.11 Unilateral primary osteoarthritis of first carpometacarpal joint, right hand ==

== ENCOUNTER → 2024-06-23 | Outpatient (CLI) | payer OTHER, MEDICAID | LOC: M SOG 11:49 | PROVIDERS: ATTEND Orthopaedic Surgery Hand Surgery | DX: M18.12 Unilateral primary osteoarthritis of first carpometacarpal joint, left hand (principal); Z98.890 Other specified postprocedural states ==

== ENCOUNTER → 2024-07-18 | Outpatient (CLI) | payer OTHER, MEDICAID ==
[~2024-07-18] MED LIST changes: +OXYC1TAB23
== END ==
LOC: M SOG 10:01
PROVIDERS: ATTEND Physician Assistant
DX: M25.562 Pain in left knee (principal)

== ENCOUNTER → 2024-07-19 | Outpatient (CLI) | payer MEDICARE, MEDICAID ==
[2024-07-19 15:39] LABS: ALBUMIN 3.8 G/DL (3.2-5.2); ALKALINE PHOSPHATASE 92 U/L (35-104); ALT/SGPT 15 U/L (7.0-40); AST/SGOT 14 U/L (<34); BILIRUBIN,TOTAL 0.5 MG/DL (0.3-1.2); BLOOD UREA NITROGEN 14 MG/DL (9-23); CALCIUM LEVEL 8.8 MG/DL (8.3-10.6); CARBON DIOXIDE LEVEL 26 MMOL/L (20-31); CHLORIDE LEVEL 106 MMOL/L (98-107); CREATININE FOR GFR 0.86 MG/DL (0.55-1.30); FREE T4 1.13 NG/DL (0.89-1.76); GLOMERULAR FILTRATION RATE > 60.0 (>39); GLUCOSE, FASTING 94 MG/DL (74-106); POTASSIUM SERUM 4.2 MMOL/L (3.5-5.1); RHEUMATOID FACTOR QUANT < 3.5 IU/ML (<14); SODIUM LEVEL 141 MMOL/L (136-145); THYROID STIMULATING HORMONE 0.798 uIU/ML (0.55-4.78); TOTAL PROTEIN 6.8 G/DL (5.7-8.2); VITAMIN B12 LEVEL 362 PG/ML (211-911)
[2024-07-19 15:42] LABS: BASO # 0.1 10^3/uL (0.0-0.2); BASO % 0.6 % (0.0-1.0); EOS # 0.1 10^3/uL (0.0-0.5); EOS % 0.5 % (0.0-3.0); HEMATOCRIT 42.4 % (36.0-47.0); HEMOGLOBIN 13.8 g/dl (12.0-15.5); LYMPH # 14.4 10^3/uL (1.5-5.0); MEAN CORPUSCULAR HEMOGLOBIN 29.6 pg (27.0-33.0); MEAN CORPUSCULAR HGB CONC 32.5 g/dl (32.0-36.5); MEAN CORPUSCULAR VOLUME 90.8 fl (80.0-96.0); MONO # 0.7 10^3/uL (0.0-0.8); MONO % 3.9 % (2.0-8.0); NEUTROPHILS # 3.6 10^3/uL (1.5-8.5); NEUTROPHILS % 18.8 % (36.0-66.0); PLATELET COUNT, AUTOMATED 257 10^3/uL (150-450); RED BLOOD COUNT 4.67 10^6/uL (4.00-5.40); WHITE BLOOD COUNT 18.9 10^3/uL (4.0-10.0)
[2024-07-19 15:47] LABS: ERYTHROCYTE SEDIMENTATION RATE 13 mm/hr (0-30)
[2024-07-19 16:04] LABS: FOLATE 12.5 NG/ML (>5.4)
[2024-07-22 09:53] LABS: ANA SCREEN, IFA NEGATIVE (NEGATIVE)
[2024-07-24 19:42] LABS: VITAMIN E(ALPHA TOCOPHEROL) 20.4 mg/L (5.7-19.9)
[2024-07-25 18:16] LABS: VITAMIN B6,PYRIDOXAL PHOSPHATE 3.8 ng/mL (2.1-21.7)
[2024-07-27 17:31] LABS: VITAMIN B1 LEVEL WHOLE BLOOD 80 nmol/L (78-185)
== END ==
LOC: M PLALAB 10:21
PROVIDERS: ATTEND Psychiatry & Neurology Neurology
DX: R41.3 Other amnesia (principal); E07.9 Disorder of thyroid, unspecified; E53.8 Deficiency of other specified B group vitamins; Z11.3 Encounter for screening for infections with a predominantly sexual mode of transmission

== ENCOUNTER → 2024-08-18 | Outpatient (CLI) | payer MEDICARE, MEDICAID | LOC: M SOG 16:05 | PROVIDERS: ATTEND Neuromusculoskeletal Medicine, Sports Medicine | DX: M17.12 Unilateral primary osteoarthritis, left knee (principal) ==

== ENCOUNTER → 2024-09-01 | Outpatient (CLI) | payer MEDICARE, MEDICAID | LOC: M SOG 07:58 | PROVIDERS: ATTEND Physician Assistant | DX: M25.512 Pain in left shoulder (principal); Z53.9 Procedure and treatment not carried out, unspecified reason ==

== ENCOUNTER → 2024-09-30 | Outpatient (CLI) | payer MEDICARE, MEDICAID | LOC: M SOG 07:01 | PROVIDERS: ATTEND Physician Assistant | DX: Z53.9 Procedure and treatment not carried out, unspecified reason (principal) ==

== ENCOUNTER → 2025-02-03 | Outpatient (REF) | payer MEDICARE ==
[2025-02-03 19:18] LABS: ALT/SGPT 17.0 U/L (7.0-40); AST/SGOT 19.0 U/L (<34); CALCIUM LEVEL 9.4 MG/DL (8.3-10.6); CARBON DIOXIDE LEVEL 25.0 MMOL/L (20-31); CHLORIDE LEVEL 106.0 MMOL/L (98-107); CHOLESTEROL LEVEL 224.0 MG/DL (<200); CHOLESTEROL RISK RATIO 3.36 (<5); CREATININE FOR GFR 1.03 MG/DL (0.55-1.30); GLOMERULAR FILTRATION RATE 57.8 (>39); LDL CHOLESTEROL 138.7 MG/DL (<100); NON-HDL-C 157.5 MG/DL; POTASSIUM SERUM 4.4 MMOL/L (3.5-5.1); SODIUM LEVEL 139.0 MMOL/L (136-145); TRIGLYCERIDES LEVEL 94.0 MG/DL (<150)
[2025-02-03 19:27] LABS: ESTIMATED AVERAGE GLUCOSE 114.0 MG/DL (60-110)
== END ==
LOC: M SFHCCLAY 11:23
PROVIDERS: ATTEND Nurse Practitioner Family
DX: R41.3 Other amnesia (principal); I77.819 Aortic ectasia, unspecified site; H91.92 Unspecified hearing loss, left ear; R92.8 Other abnormal and inconclusive findings on diagnostic imaging of breast; Z85.828 Personal history of other malignant neoplasm of skin; K21.9 Gastro-esophageal reflux disease without esophagitis; M51.16 Intervertebral disc disorders with radiculopathy, lumbar region; C91.90 Lymphoid leukemia, unspecified not having achieved remission; J43.9 Emphysema, unspecified; L28.0 Lichen simplex chronicus; Z79.899 Other long term (current) drug therapy